=== PATIENT | female | born 1955 | race Caucasian/White ===

== ENCOUNTER 2022-11-14 13:42 | Emergency (ER) | payer OTHER, MEDICARE, SELFPAY ==
--- NOTE | ~2022-11-14 | XR_ITS ---
XR tibia fibula RT 2V 11/14/2022 14:09 INDICATION: Trauma to the right leg PROCEDURE: 2 views right tibia/fibula COMPARISON: No prior studies for comparison. FINDINGS: Fracture, dislocation or subluxation is not identified. The soft tissues appear within norm al limits. No foreign bodies are identified. IMPRESSION: 1: NO ACUTE BONE OR JOINT ABNORMALITY IDENTIFIED. Reviewed, dictated and finalized at location A. [facility] [employer]
[2022-11-14 13:57] VITALS: BP 128/73; PULSE 79; RESP 20; TEMP 36.8; O2SAT 100
--- NOTE | 2022-11-14 14:35 | ED.LOWEXIN ---
HPI - Extremity Injury (Lower) General Chief Complaint: Extremity Injury, Lower Stated Complaint: Right biswas injury Time Seen by Provider: 11/14/22 14:35 Source: patient Mode of arrival: ambulatory Limitations: no limitations History of Present Illness HPI Narrative: 67-year-old female presented for complaint of bruising and swelling to the right lower leg after injury today. She states she was at a department store, [employer], when she was standing in the aisle and a glass shelf fell, striking her right lower leg. She denies reaching for an object when the glass shelf fell. She endorses pain 5/10. Denies open areas, numbness, tingling, weakness of the extremity. Has taken anything for pain. Declined ice. Related Data Home Medications Medication Instructions Recorded Confirmed lisinopril 20 1 tablet PO DAILY 11/14/22 11/14/22 mg-hydrochlorothiazide 25 mg tablet pravastatin 20 mg tablet 20 mg PO DAILY 11/14/22 11/14/22 Allergies Allergy/AdvReac Type Severity Reaction Status Date / Time No Known Allergies Allergy Verified 11/14/22 14:05 Review of Systems Review of Systems: per HPI All systems reviewed & are unremarkable except as noted in HPI and below PMFSH Past Medical History Medical History (Updated 11/14/22 @ 14:48 by Cherry Valadez, SINDI) No pertinent past medical history Comments At time of signature, I have reviewed and agree with nursing past medical, surgical, social and family history unless otherwise noted. Please see nursing chart for further information. There is no relevant family history pertinent to the presenting complaint Exam Narrative: GENERAL: Well-appearing, well-nourished, and in no acute distress. CHEST: Speaks in full sentences. No respiratory distress. HEART: Regular rate and rhythm. Normal and equal peripheral pulses. EXTREMITIES: 4cm contusion to right anterior lower leg, mild swelling, no open wounds. Tender with palpation. Right foot/ankle has normal strength and sensation, normal range of motion. No skin tenting, or obvious deformity; alignment normal, pulse palpable and equal bilaterally, skin warm, dry, pink. Capillary refill less than 3 seconds. SKIN: Warm, dry, no rash. NEURO: Alert and oriented x3. PSYCH: Normal mood and affect Course Course Emergency Course: Patient is aware of diagnosis, understands and agrees to treatment plan. Anticipatory guidance given. Patient agrees to follow-up as directed and is aware of reasons to seek care at the emergency department. Portions of this record may have been created with voice recognition software Level of Care: Express Care Visit Vital Signs Vital signs: Vital Signs Temperature 98.2 F 11/14/22 13:57 Pulse Rate 79 11/14/22 13:57 Respiratory Rate 20 11/14/22 13:57 Blood Pressure 128/73 11/14/22 13:57 Pulse Oximetry 100 11/14/22 13:57 Oxygen Delivery Room Air 11/14/22 13:57 Temperature 98.2 F 11/14/22 13:57 Pulse Rate 79 11/14/22 13:57 Respiratory Rate 20 11/14/22 13:57 Blood Pressure 128/73 11/14/22 13:57 Pulse Oximetry 100 11/14/22 13:57 Oxygen Delivery Room Air 11/14/22 13:57 Reviewed MDM - Extremity Injury (Lower) MDM Narrative Medical decision making narrative: Results of x-ray reviewed with patient. She declined ice at this time. Advised supportive measures and signs/symptoms to go to the ER. Pt is appropriate for outpt treatment and f/u. Differential Diagnosis Differential diagnosis: Likely puncture wound of foot, ankle fracture and other (contusion, leg fracture, laceration, skin avulsion) Imaging Data Radiologist's impression: Patient: Tori Fitzgerald : 1955 MR#: [id number] Age/Sex: 67 / F Acct:[id number] Loc: [facility]? ? ADM Date: 11/14/22Attending Dr: Ordering Physician: Cherry Valadez APRN Date of Service: 11/14/22 Procedure(s): XR tibia fibula RT 2V Accession Number(s): [id number] cc: Cherry Valadez
== END 2022-11-14 14:47 | disposition home or self-care (01) ==
PROVIDERS: Emergency Provider Nurse Practitioner Family; PCP Internal Medicine
DX: S80.11XA Contusion of right lower leg, initial encounter (principal); W20.8XXA Other cause of strike by thrown, projected or falling object, initial encounter; Y92.512 Supermarket, store or market as the place of occurrence of the external cause
CPT/HCPCS: 73590; 99213; G0463